=== PATIENT | female | born 1940 | race Caucasian/White ===

== ENCOUNTER → 2020-09-11 | Outpatient (REF) | payer MEDICARE | LOC: M LAB REF 16:19 | PROVIDERS: ATTEND Obstetrics & Gynecology | DX: R32 Unspecified urinary incontinence (principal) ==

== ENCOUNTER → 2020-10-17 | Outpatient (CLI) | payer MEDICARE ==
--- NOTE | 2020-10-17 13:15 | REP ---
INDICATION: PAIN LEFT HAND. COMPARISON: None. TECHNIQUE: AP and lateral views of the left forearm are provided. FINDINGS: AP and latter views of the oral left forearm demonstrate diffuse osteopenia. No fracture or subluxation is seen. No opaque foreign body noted. At the wrist, there is some accessory ossicle formation dorsally at the radiocarpal articulation visible on lateral film. This is not acute. IMPRESSION: No acute abnormality. Diffuse osteopenia.. <Electronically signed by Joshua Villa > 10/17/20 [id number]
--- NOTE | 2020-10-17 13:16 | REP ---
INDICATION: PAIN LEFT HAND. COMPARISON: None. TECHNIQUE: Four views of the left hand are obtained. FINDINGS: Four views of the left hand demonstrate diffuse osteoporosis.. No fracture or subluxation is seen. No opaque foreign body noted. There are osteoarthritic changes at the 1st carpometacarpal articulation and at the PIP and D IP joints of the fingers. There is mild narrowing of the radiocarpal articulation joint space. No erosive changes are seen. IMPRESSION: It osteoporosis and mild osteoarthritic changes. No acute bony abnormality.. <Electronically signed by Joshua Villa > 10/17/20 [id number]
--- NOTE | 2020-10-17 13:19 | REP ---
INDICATION: PAIN LEFT HAND. COMPARISON: None. TECHNIQUE: Four views. FINDINGS: There is diffuse osteoporosis. There is some joint space narrowing in the radiocarpal articulation as well as in the articulation between the navicula and the greater multangular. Osteoarthritic spurring is seen at the 1st carpometacarpal articulation. There is no evidence of erosive change. There are 2 small well corticated accessory ossicles dorsally at the radiocarpal articulation. IMPRESSION: No erosive changes seen. Osteoporosis. Osteoarthritis. Accessory ossicles at the dorsal aspect of the radiocarpal articulation. <Electronically signed by Joshua Villa > 10/17/20 [id number]
== END ==
LOC: M WUC 11:37
PROVIDERS: ATTEND Physician Assistant
DX: M25.542 Pain in joints of left hand (principal); M81.0 Age-related osteoporosis without current pathological fracture; M19.90 Unspecified osteoarthritis, unspecified site

== ENCOUNTER → 2022-02-23 | Outpatient (CLI) | payer MEDICARE ==
[2022-02-23 15:04] LABS: BASO # 0.1 10^3/uL (0.0-0.2); BASO % 0.5 % (0.0-1.0); EOS # 0.1 10^3/uL (0.0-0.5); EOS % 1.1 % (0.0-3.0); HEMATOCRIT 44.6 % (36.0-47.0); HEMOGLOBIN 14.1 g/dl (12.0-15.5); LYMPH # 1.7 10^3/uL (1.5-5.0); LYMPH % 14.9 % (24.0-44.0); MEAN CORPUSCULAR HEMOGLOBIN 32.3 pg (27.0-33.0); MEAN CORPUSCULAR HGB CONC 31.6 g/dl (32.0-36.5); MEAN CORPUSCULAR VOLUME 102.1 fl (80.0-96.0); MONO # 0.6 10^3/uL (0.0-0.8); MONO % 5.3 % (2.0-8.0); NEUTROPHILS # 8.8 10^3/uL (1.5-8.5); NEUTROPHILS % 77.8 % (36.0-66.0); PLATELET COUNT, AUTOMATED 359 10^3/uL (150-450); RED BLOOD COUNT 4.37 10^6/uL (4.00-5.40); WHITE BLOOD COUNT 11.3 10^3/uL (4.0-10.0)
[2022-02-23 15:10] LABS: CARBON DIOXIDE LEVEL 30 MMOL/L (20-31); CHLORIDE LEVEL 105 MMOL/L (98-107); POTASSIUM SERUM 5.2 MMOL/L (3.5-5.1); SODIUM LEVEL 141 MMOL/L (136-145)
[2022-02-23 15:13] LABS: APPEARANCE, URINE MANUAL HAZY (CLEAR); COLOR, URINE MANUAL LT YELLOW (YELLOW)
[2022-02-23 15:14] LABS: BILIRUBIN, URINE MANUAL NEGATIVE (NEGATIVE); BLOOD URINE MANUAL TRACE (NEGATIVE); GLUCOSE, URINE (UA) MANUAL NEGATIVE (NEGATIVE); KETONE, URINE MANUAL NEGATIVE (NEGATIVE); LEUKOCYTE ESTERASE, URINE MAN POSITIVE (NEGATIVE); NITRITE, URINE MANUAL POSITIVE (NEGATIVE); PROTEIN, URINE MANUAL 1+ mg/dL (NEGATIVE); SPECIFIC GRAVITY,URINE MANUAL 1.015 (1.002-1.035); UROBILINOGEN, URINE MANUAL NORMAL (NORMAL)
[2022-02-23 15:15] LABS: CALCIUM LEVEL 9.4 MG/DL (8.3-10.6)
[2022-02-23 15:16] LABS: BLOOD UREA NITROGEN 21 MG/DL (9-23); GLUCOSE, FASTING 96 MG/DL (74-106)
[2022-02-23 15:18] LABS: CREATININE FOR GFR 0.92 MG/DL (0.55-1.30); GLOMERULAR FILTRATION RATE > 60.0 (>32)
[2022-02-23 16:02] LABS: WBC, URINE 40-50 /hpf (0-3)
[2022-02-23 16:03] LABS: BACTERIA, URINE LARGE AMOUNT; SQUAMOUS EPITHELIAL CELL URINE SMALL AMOUNT /hpf (SMALL AMT)
== END ==
LOC: M PLALAB 10:56
PROVIDERS: ATTEND Nurse Practitioner Family
DX: Z01.818 Encounter for other preprocedural examination (principal); I10 Essential (primary) hypertension; E78.2 Mixed hyperlipidemia; Z79.899 Other long term (current) drug therapy

== ENCOUNTER → 2022-03-14 | Outpatient (CLI) | payer MEDICARE ==
[~2022-03-14] MED LIST: ATEN25TA PO; CALC600T60 PO; VITA-243 PO
== END ==
LOC: M LABSMTC 10:37
PROVIDERS: ATTEND Anesthesiology
DX: Z01.812 Encounter for preprocedural laboratory examination (principal); Z20.822 Contact with and (suspected) exposure to COVID-19

== ENCOUNTER 2022-03-17 08:52 | Day surgery (SDC) | payer MEDICARE ==
[~2022-03-17] VITALS: Ht 160 cm; Wt 57.4 kg
[2022-03-17] VITALS (7 sets, daily range): BP systolic 119–127; BP diastolic 61–69
[~2022-03-17 08:52] MED LIST changes: +LR 1,000 ML IV SCH; +ceFAZolin SOD 2 GM in IV 1 EA IV ONE
[2022-03-17] MEDS ORDERED: LR 1,000 ML IV SCH ×3 (09:05→14:05)
[2022-03-17 09:19] LABS: HEMATOCRIT 42.7 % (36.0-47.0); HEMOGLOBIN 13.8 g/dl (12.0-15.5); MEAN CORPUSCULAR HEMOGLOBIN 32.7 pg (27.0-33.0); MEAN CORPUSCULAR HGB CONC 32.3 g/dl (32.0-36.5); MEAN CORPUSCULAR VOLUME 101.2 fl (80.0-96.0); PLATELET COUNT, AUTOMATED 265 10^3/uL (150-450); RED BLOOD COUNT 4.22 10^6/uL (4.00-5.40); WHITE BLOOD COUNT 7.2 10^3/uL (4.0-10.0)
[2022-03-17] MEDS ORDERED: HOME MED LIST COMPLETE! XX SCH (09:25)
[2022-03-17] MEDS ORDERED: fentaNYL 100 MCG/2 ML INJECTION As Ordered ONE (10:30)
[2022-03-17] MEDS ORDERED: propofoL 200 MG/20 ML VIAL As Ordered ONE (10:31)
[2022-03-17] MEDS ORDERED: ONDANSETRON 4MG 2ML VIAL As Ordered ONE (10:31)
[2022-03-17] MEDS ORDERED: ACETAMINOPHEN 1000MG 100ML IV BAG As Ordered ONE (10:31)
[2022-03-17] MEDS ORDERED: ROCURONIUM BROMIDE 50MG/5ML VIAL As Ordered ONE (10:31)
[2022-03-17] MEDS ORDERED: LIDOCAINE 2% 100MG/5ML SDV (FOR ANES.) As Ordered ONE (10:31)
[2022-03-17] MEDS ORDERED: SUGAMMADEX SODIUM 500 MG/5 ML VIAL (BRIDION) As Ordered ONE (10:31)
[2022-03-17] MEDS ORDERED: VASOPRESSIN INJ 20UNITS/ML 1ML VIAL As Ordered ONE (11:13)
[2022-03-17] MEDS ORDERED: ePHEDrine SULFATE 25 MG/5 ML(5MG/ML) SYRINGE As Ordered ONE (11:36)
[2022-03-17] MEDS ORDERED: ESTROGENS VAGINAL CREAM 30GM As Ordered ONE (11:59)
[2022-03-17] MEDS ORDERED: FLUORESCEIN 10% (100MG/ML) 5ML VIAL As Ordered ONE (12:43)
[2022-03-17] MEDS ORDERED: fentaNYL 100 MCG/2 ML INJECTION IV PRN (13:00)
[2022-03-17] MEDS ORDERED: ONDANSETRON 4MG 2ML VIAL IV PRN (13:00)
[2022-03-17] MEDS: HYDROMORPHONE HCL 0.5 MG/ 0.5 ML SYRINGE IV PRN ×2 (13:22→13:37)
[2022-03-17] MEDS: oxyCODONE 5MG TAB PO PRN ×2 (14:03→14:34)
[2022-03-17] MEDS ORDERED: PERCOCET 5MG/325MG TAB PO PRN (14:10)
[2022-03-17] MEDS: IBUPROFEN 600MG TAB PO SCH (17:41)
[2022-03-18] VITALS: BP 122/64
[2022-03-18] MEDS: IBUPROFEN 600MG TAB PO SCH ×2 (00:02→05:28)
[2022-03-18 03:13] VITALS: O2SAT 93
[2022-03-18 04:00] VITALS: BP 115/60
[2022-03-18 08:30] VITALS: BP 117/59
[2022-03-18] MEDS ORDERED: atenoloL 25 MG TAB PO SCH (09:00)
== END 2022-03-18 11:06 | disposition home or self-care (01) ==
LOC: UNDOADMIN 08:52 → M OR 08:52 → M SDC 08:52 → EDSTATUS 11:50 → M MSPAV 15:00 → M OR 15:00 → UNDODISIN 03-18 11:06 → M SDC 03-18 11:06
PROVIDERS: ATTEND Obstetrics & Gynecology
DX: N99.3 Prolapse of vaginal vault after hysterectomy (principal); N81.12 Cystocele, lateral; I10 Essential (primary) hypertension; F17.200 Nicotine dependence, unspecified, uncomplicated; Z79.899 Other long term (current) drug therapy
CPT/HCPCS: 36415; 57240; 57282; 85027; 86850; 86900; 86901; 88302; C1713; C1771; J1100; J2405

== ENCOUNTER → 2022-05-26 | Outpatient (CLI) | payer MEDICARE ==
[~2022-05-26] MED LIST changes: -LR 1,000 ML IV SCH; -ceFAZolin SOD 2 GM in IV 1 EA IV ONE
== END ==
LOC: M RAD 15:30
PROVIDERS: ATTEND Physician Assistant
DX: R39.15 Urgency of urination (principal); N32.89 Other specified disorders of bladder

== ENCOUNTER 2024-02-02 19:38 | Emergency (ER) | payer MEDICARE ==
[2024-02-02 19:51] VITALS: TEMP 96.7
[2024-02-02 20:43] LABS: BASO # 0.1 10^3/uL (0.0-0.2); BASO % 0.5 % (0.0-1.0); EOS % 0.3 % (0.0-3.0); HEMATOCRIT 42.7 % (36.0-47.0); HEMOGLOBIN 14.6 g/dl (12.0-15.5); LYMPH # 0.6 10^3/uL (1.5-5.0); LYMPH % 6.5 % (24.0-44.0); MEAN CORPUSCULAR HEMOGLOBIN 33.4 pg (27.0-33.0); MEAN CORPUSCULAR HGB CONC 34.2 g/dl (32.0-36.5); MEAN CORPUSCULAR VOLUME 97.7 fl (80.0-96.0); MONO # 0.3 10^3/uL (0.0-0.8); MONO % 3.1 % (2.0-8.0); NEUTROPHILS # 8.4 10^3/uL (1.5-8.5); NEUTROPHILS % 89.3 % (36.0-66.0); PLATELET COUNT, AUTOMATED 285 10^3/uL (150-450); RED BLOOD COUNT 4.37 10^6/uL (4.00-5.40); WHITE BLOOD COUNT 9.4 10^3/uL (4.0-10.0)
[2024-02-02] MEDS ORDERED: ISOVUE-370 76% 100ML VIAL As Ordered ONE (20:51)
[2024-02-02 21:08] LABS: ALBUMIN 3.9 G/DL (3.2-5.2); BILIRUBIN,DIRECT 0.1 MG/DL (<0.4); BILIRUBIN,TOTAL 0.3 MG/DL (0.3-1.2); TOTAL PROTEIN 7.5 G/DL (5.7-8.2)
[2024-02-02] MEDS: ONDANSETRON 4MG 2ML VIAL IV ONE (21:23)
[2024-02-02] MEDS: KETOROLAC 30 MG/ML 1ML VIAL IV ONE (21:23)
[2024-02-02 22:17] VITALS: BP 155/74; O2SAT 96
== END 2024-02-02 23:07 | disposition home or self-care (01) ==
LOC: M ED 19:38
DX: K40.30 Unilateral inguinal hernia, with obstruction, without gangrene, not specified as recurrent (principal); K57.30 Diverticulosis of large intestine without perforation or abscess without bleeding; I10 Essential (primary) hypertension; F17.200 Nicotine dependence, unspecified, uncomplicated; Z79.899 Other long term (current) drug therapy; Z88.0 Allergy status to penicillin
CPT/HCPCS: 74177; 80047; 80076; 81001; 83690; 85025; 96374; 96375; 99284; J1885; J2405; Q9967

== ENCOUNTER 2024-04-24 12:20 | Day surgery (SDC) | payer MEDICARE ==
[~2024-04-24] VITALS: Ht 152.4 cm; Wt 44.5 kg
[2024-04-24] MEDS ORDERED: NS (Normal Saline) 0.9% 1,000 ML IV SCH ×3 (12:30→16:00)
[2024-04-24] MEDS ORDERED: fentaNYL 250 MCG/5 ML INJECTION As Ordered ONE (13:20)
[2024-04-24] MEDS ORDERED: KETOROLAC 60MG 2ML VIAL As Ordered ONE (13:21)
[2024-04-24] MEDS ORDERED: ROCURONIUM BROMIDE 50MG/5ML VIAL As Ordered ONE (13:21)
[2024-04-24] MEDS ORDERED: LIDOCAINE 2% 100MG/5ML SDV (FOR ANES.) As Ordered ONE (13:21)
[2024-04-24] MEDS ORDERED: ACETAMINOPHEN 1000MG/100ML IV BAG As Ordered ONE (13:21)
[2024-04-24] MEDS ORDERED: SUGAMMADEX SODIUM 500 MG/5 ML VIAL (BRIDION) As Ordered ONE (13:21)
[2024-04-24] MEDS ORDERED: propofoL 200 MG/20 ML VIAL As Ordered ONE (13:21)
[2024-04-24] MEDS ORDERED: ONDANSETRON 4MG 2ML VIAL As Ordered ONE (13:22)
[2024-04-24] MEDS: ceFAZolin SOD 2 GM in IV 1 EA IV ONE (14:02)
[2024-04-24] MEDS ORDERED: ePHEDrine SULFATE 25 MG/5 ML(5MG/ML) SYRINGE As Ordered ONE (14:20)
[2024-04-24] MEDS ORDERED: LABETALOL 100MG/20ML VIAL As Ordered ONE (14:26)
[2024-04-24] MEDS ORDERED: fentaNYL 100 MCG/2 ML INJECTION IV PRN (15:25)
[2024-04-24] MEDS ORDERED: oxyCODONE 5MG TAB PO PRN (15:25)
[2024-04-24] MEDS ORDERED: ONDANSETRON 4MG 2ML VIAL IV PRN (15:25)
[2024-04-24] MEDS ORDERED: HYDROMORPHONE HCL 0.5 MG/ 0.5 ML SYRINGE IV PRN (15:25)
[2024-04-24] MEDS ORDERED: traMADol 50 MG TAB PO PRN (16:00)
[2024-04-24 16:40] VITALS: BP 164/77; TEMP 97.9; O2SAT 95
== END 2024-04-24 17:52 | disposition home or self-care (01) ==
LOC: M SDC 12:20
PROVIDERS: ATTEND Surgery
DX: K40.90 Unilateral inguinal hernia, without obstruction or gangrene, not specified as recurrent (principal); I10 Essential (primary) hypertension; Z68.1 Body mass index [BMI] 19.9 or less, adult; Z88.0 Allergy status to penicillin; Z79.899 Other long term (current) drug therapy; F17.210 Nicotine dependence, cigarettes, uncomplicated
CPT/HCPCS: 49650; 93005; C1781; J0131; J0665; J0690; J1100; J1885; J1920; J2405; J3010; S2900